=== PATIENT | male | born 1990 | race Caucasian/White ===

== ENCOUNTER 2019-01-23 17:32 | Emergency (ER) | payer BC ==
[2019-01-23 17:50] VITALS: BP 146/98
--- NOTE | 2019-01-23 18:11 | ER Document Report ---
ED Medical Screen (RME) - General Chief Complaint: Flank Pain Stated Complaint: LEFT FLANK PAIN Time Seen by Provider: 01/23/19 18:04 Mode of Arrival: Ambulatory Information source: Patient Notes: 28-year-old male with history of diabetes pancreatitis Crohn's with colostomy rest leg syndrome presents emergency department with reports of decreased urine output. He reports he was recently started on a bunch new medications by Dr. Alcaraz last week. Reports vomiting reports increased black stool in his colostomy bag. I have greeted and performed a rapid initial assessment of this patient. A comprehensive ED assessment and evaluation of the patient, analysis of test results and completion of the medical decision making process will be conducted by additional ED providers. Dictation of this chart was performed using voice recognition software; therefore, there may be some unintended grammatical errors. - Related Data Allergies/Adverse Reactions: certolizumab pegol [From Cimzia] Allergy (Verified 01/23/19 18:06) Hives infliximab [From Remicade] Allergy (Verified 01/23/19 18:06) Hives Sulfa (Sulfonamide Antibiotics) Allergy (Verified 01/23/19 18:06) Anaphylaxis Physical Exam - Vital signs Vitals: Temp Pulse Resp BP Pulse Ox 98.2 F 108 H 20 146/98 H 96 01/23/19 17:49 01/23/19 17:49 01/23/19 17:49 01/23/19 17:49 01/23/19 17:49 Course - Vital Signs Vital signs: Temp Pulse Resp BP Pulse Ox 98.2 F 108 H 20 146/98 H 96 01/23/19 18:06 01/23/19 18:06 01/23/19 18:06 01/23/19 18:06 01/23/19 18:06 - Laboratory Result Diagrams: 01/23/19 18:21 01/23/19 18:21 Laboratory results interpreted by me: 01/23/19 01/23/19 01/23/19 18:21 18:21 18:25 WBC 12.7 H Sodium 136.1 L Glucose 157 H Urine Glucose (UA) >=500 H
[2019-01-23 18:52] LABS: ABSOLUTE BASOPHILS # (AUTO) 0.1 10^3/uL (0.0-0.2); ABSOLUTE EOSINOPHILS # (AUTO) 0.3 10^3/uL (0.0-0.6); ABSOLUTE LYMPHOCYTES (AUTO) 3.8 10^3/uL (0.5-4.7); ABSOLUTE NEUT (AUTO) 7.5 10^3/uL (1.7-8.2); BASOPHILS % (AUTO) 0.6 % (0-2); EOSINOPHILS % (AUTO) 2.3 % (0-6); HEMATOCRIT 45.1 % (37.9-51.0); HEMOGLOBIN 15.5 g/dL (13.5-17.0); LYMPHOCYTES % (AUTO) 29.9 % (13-45); MEAN CORPUSCULAR HEMOGLOBIN 28.9 pg (27.0-33.4); MEAN CORPUSCULAR HGB CONC 34.3 g/dL (32.0-36.0); MEAN CORPUSCULAR VOLUME 84 fl (80-97); MONOCYTES % (AUTO) 8.3 % (3-13); PLATELET COUNT 344 10^3/uL (150-450); RED BLOOD COUNT 5.35 10^6/uL (4.35-5.55); RED CELL DISTRIBUTION WIDTH 13.1 % (11.5-14.0); SEGMENTED NEUTROPHILS % (AUTO) 58.9 % (42-78); TOTAL CELLS COUNTED % (AUTO) 100 %; WHITE BLOOD COUNT 12.7 10^3/uL (4.0-10.5)
[2019-01-23 18:57] LABS: APPEARANCE,URINE CLEAR; BILIRUBIN,URINE NEGATIVE (NEGATIVE); COLOR,URINE STRAW; GLUCOSE, URINE >=500 mg/dL (NEGATIVE); KETONES,URINE NEGATIVE (NEGATIVE); LEUKOCYTE ESTERASE,URINE NEGATIVE (NEGATIVE); NITRITE,URINE NEGATIVE (NEGATIVE); PROTEIN,URINE NEGATIVE (NEGATIVE); URINE SPECIFIC GRAVITY 1.013; UROBILINOGEN,URINE NEGATIVE mg/dL (<2.0)
[2019-01-23 19:08] LABS: ALBUMIN 4.6 g/dL (3.5-5.0); ALKALINE PHOSPHATASE 62 U/L (38-126); AMYLASE 81 U/L (30-110); ANION GAP 13 (5-19); ASPARTATE AMINO TRANSFERASE 44 U/L (17-59); BILIRUBIN,DIRECT 0.1 mg/dL (0.0-0.4); BILIRUBIN,TOTAL 0.3 mg/dL (0.2-1.3); BLOOD UREA NITROGEN 12 mg/dL (7-20); CARBON DIOXIDE 25 mmol/L (22-30); CHLORIDE 98 mmol/L (98-107); GLUCOSE 157 mg/dL (75-110); TOTAL PROTEIN 7.9 g/dL (6.3-8.2)
--- NOTE | 2019-01-23 20:31 | RADIOLOGY REPORT (SQ) ---
EXAM DESCRIPTION: US RETROPERITONEUM LIMITED COMPLETED DATE/TME: 01/23/2019 18:09 CLINICAL HISTORY: 28 years, Male, flank pain, unable to void COMPARISON: None. TECHNIQUE: Axial 2-D grayscale images of the retroperitoneum were acquired. Doppler was utilized. LIMITATIONS: None. FINDINGS: Right kidney measures 12.4 x 6.0 x 5.0 cm in size. It demonstrates normal echogenicity. There is no hydronephrosis. Cortical thickness is 2 cm. Left kidney measures 13.6 x 5.8 x 6.3 cm in size. Cortical thickness is 2 cm. It demonstrates normal echogenicity. No hydronephrosis. Visualized portions of the urinary bladder show no suspicious abnormality. Bilateral ureteral jets are evident. The visualized portions of the liver parenchyma appear hyperechoic. IMPRESSION: No definite acute sonographic abnormality involving either kidney. Suspect hepatic steatosis. copyright 2010 [employer]- All Rights Reserved
--- NOTE | 2019-01-23 21:17 | ER Document Report ---
ED General - General Chief Complaint: Flank Pain Stated Complaint: LEFT FLANK PAIN Time Seen by Provider: 01/23/19 18:04 Primary Care Provider: FRANK DORSEY MD [Primary Care Provider] - Follow up as needed Mode of Arrival: Ambulatory Information source: Patient TRAVEL OUTSIDE OF THE [place] IN LAST 30 DAYS: No - HPI Onset: Other - over the last several days Onset/Duration: Gradual Quality of pain: Achy, Cramping Severity: Moderate Pain Level: 3 Associated symptoms: Other - pain with urination, mild urinary incontinence Exacerbated by: Movement Relieved by: Other - nothing Similar symptoms previously: No Recently seen / treated by doctor: No Notes: 28 year old male with a history of Crohns Disease s/p Colostomy and recent diagnosis of HTN and DM (patient was just started on treatment for both by his PCP with HCTZ, Insulin, and Metformin) here for several days of left sided flank pain, pain with urination, and mild urinary incontinence. The patient denies fevers and sweats but he says he has had some chills. The patient has also had some mild nausea and looser stool then normal. - Related Data Allergies/Adverse Reactions: certolizumab pegol [From Cimzia] Allergy (Verified 01/23/19 18:06) Hives infliximab [From Remicade] Allergy (Verified 01/23/19 18:06) Hives Sulfa (Sulfonamide Antibiotics) Allergy (Verified 01/23/19 18:06) Anaphylaxis Home Medications: Ozempic. Metformin. Farxiga. Telmisartan-HCTZ. Amlodipine. Lyrica. Oxycodone. Tresiba Past Medical History - General Information source: Patient - Social History Smoking Status: Never Smoker Chew tobacco use (# tins/day): No Frequency of alcohol use: None Drug Abuse: None Family History: None Patient has suicidal ideation: No Patient has homicidal ideation: No - Past Medical History Cardiac Medical History: Reports: Hx Hypercholesterolemia, Hx Hypertension Endocrine Medical History: Reports: Hx Diabetes Mellitus Type 2 Past Surgical History: Reports: Hx Abdominal Surgery - colon removed, rectum removed, hernia repairs, small bowel revision, Hx Rectal Surgery - rectum r emoved Review of Systems - Review of Systems Constitutional: No symptoms reported EENT: No symptoms reported Cardiovascular: No symptoms reported Respiratory: No symptoms reported Gastrointestinal: Abdominal pain, Nausea, Other - loose stools Genitourinary: Dysuria, Incontinence Male Genitourinary: No symptoms reported Musculoskeletal: No symptoms reported Skin: No symptoms reported Hematologic/Lymphatic: No symptoms reported Neurological/Psychological: No symptoms reported Physical Exam - Vital signs Vitals: Temp Pulse Resp BP Pulse Ox 98.2 F 108 H 20 146/98 H 96 01/23/19 17:49 01/23/19 17:49 01/23/19 17:49 01/23/19 17:49 01/23/19 17:49 - Notes Notes: GENERAL: Well-appearing, well-nourished and in no acute distress. HEAD: Atraumatic, normocephalic. EYES: Pupils equal round and reactive to light, extraocular movements intact, sclera anicteric, conjunctiva are normal. ENT: Nares patent, oropharynx clear without exudates. Moist mucous membranes. NECK: Normal range of motion, supple without lymphadenopathy or JVD. LUNGS: Breath sounds clear to auscultation bilaterally and equal. No wheezes rales or rhonchi. HEART: Regular rate and rhythm without murmurs, rubs or gallops. ABDOMEN: Soft, mild tenderness in LUQ, normoactive bowel sounds. No guarding, no rebound. No masses appreciated. Colostomy bag present in RLQ. BACK: Mild left sided flank tenderness on palpation. No midline tenderness. EXTREMITIES: Normal range of motion, no pitting or edema. No clubbing or cyanosis. NEUROLOGICAL: Cranial nerves II through XII grossly intact. Normal speech, normal gait. PSYCH: Normal mood, normal affect. SKIN: Warm, Dry, normal turgor, no rashes or lesions noted. Course - Re-evaluation Re-evalutation: 01/23/19 21:57 The patient was just started on HTN and DM medications including HCTZ and Metformin. He is having some left sided flank pain, mild pain with urination, foul smelling urine. The patient has unremarkable labs, a normal UA, and an unremarkable renal US. Patient was told he is likely just having side effects of his new medications. Patient told to follow up with his PCP to discuss his current symptoms and to discuss his work up in the ER today (labs, UA, ultrasound). - Vital Signs Vital signs: Temp Pulse Resp BP Pulse Ox 98.2 F 108 H 20 146/98 H 96 01/23/19 18:06 01/23/19 18:06 01/23/19 18:06 01/23/19 18:06 01/23/19 18:06 - Laboratory Result Diagrams: 01/23/19 18:21 01/23/19 18:21 Laboratory results interpreted by me: 01/23/19 01/23/19 01/23/19 18:21 18:21 18:25 WBC 12.7 H Sodium 136.1 L Glucose 157 H Urine Glucose (UA) >=500 H Discharge - Discharge Clinical Impression: Flank pain Condition: Stable Disposition: HOME, SELF-CARE Instructions: Flank Pain ([facility]) Additional Instructions: Use Tylenol and Motrin for flank pain and abdominal pain. Drink plenty of fluids in the days to come. Follow up with your primary care doctor and discuss your symptoms you are having with your primary care doctor in light of starting new medications. You had blood work, a Urine Analysis, and an Ultrasound of your kidneys in the ER today. Referrals: FRANK DORSEY MD [Primary Care Provider] - Follow up as needed
== END 2019-01-23 22:21 | disposition home or self-care (01) ==
LOC: ER 17:32
DX: R10.9 Unspecified abdominal pain (principal); R10.812 Left upper quadrant abdominal tenderness; R39.89 Other symptoms and signs involving the genitourinary system; R32 Unspecified urinary incontinence; R30.0 Dysuria; I10 Essential (primary) hypertension; E11.9 Type 2 diabetes mellitus without complications; R19.4 Change in bowel habit; R68.83 Chills (without fever); R11.0 Nausea; Z79.899 Other long term (current) drug therapy; Z79.891 Long term (current) use of opiate analgesic; Z90.49 Acquired absence of other specified parts of digestive tract; Z88.8 Allergy status to other drugs, medicaments and biological substances; Z87.892 Personal history of anaphylaxis; Z88.2 Allergy status to sulfonamides; Z93.3 Colostomy status
CPT/HCPCS: 36415; 76775; 80053; 81001; 82150; 83690; 85025; 99284